=== PATIENT | male | born 1980 | race Hispanic/Latino ===

== ENCOUNTER → 2018-08-19 | Day surgery (SDC) | payer BC ==
[~2018-08-19] MED LIST: AMLODIPINE BESYL5 MG PO; FENTANYL CITRATE/PF 100MCG/2 ML INJ ONE; HYOSCYAMINE SULFATE 0.5 MG/ML INJ ONE; MIDAZOLAM HCL 2 MG/2 ML VIAL ONE; PROPOFOL IV EMULSION 10 MG/ML 50 ML VIAL ONE
[2018-08-19 16:40] VITALS: BP 131/80
--- NOTE | 2018-08-19 23:31 | Operative Report ---
DATE OF PROCEDURE: 08/19/2018 SURGEON: Steve Wiley MD PROCEDURE: Colonoscopy with polypectomy and biopsies. INDICATIONS FOR COLONOSCOPY: Lower abdominal pain. MEDICATIONS: The patient was done under MAC, please see anesthesiologist's note. PROCEDURE IN DETAIL: With the patient in left lateral decubitus position, the flexible fiberoptic Olympus colonoscope was inserted into the rectum with ease and advanced all the way to the cecum. The ileocecal valve was intubated and the scope was advanced into the terminal ileum. Biopsies were obtained. The scope was then withdrawn back into the colon. It was then withdrawn slowly. One polyp was hot biopsied from the proximal ascending colon. One polyp was snared from the transverse colon. One polyp was hot biopsied from the descending colon. Diverticular disease was noted to involve the descending and the sigmoid colon. Two polyps were hot biopsied from the sigmoid colon. One polyp was hot biopsied from the rectum. The scope was then retroflexed into the distal rectum and small internal hemorrhoids were noted, none of which was actively bleeding. The scope was then straightened out, it was subsequently withdrawn. The patient tolerated the procedure well. IMPRESSION: 1. Ascending colon polyp, hot biopsied. 2. Transverse colon polyp, snared. 3. Descending colon polyp, hot biopsied. 4. Diverticulosis. 5. Sigmoid colon polyps x2, hot biopsied. 6. Rectal polyp, hot biopsied. 7. Internal hemorrhoids, none actively bleeding. PLAN: Follow up histology. Initiate high-fiber, low-fat diet. Initiate high-fiber supplement. Start VSL #3 one p.o. daily. The patient might benefit from a followup colonoscopy in 2 to 3 years. Steve Wiley MD [facility] [place]/MODL /[id number]
== END | disposition home or self-care (01) ==
LOC: OR 11:55
PROVIDERS: ATTEND Internal Medicine Gastroenterology
DX: R10.10 Upper abdominal pain, unspecified (principal); K63.5 Polyp of colon; K62.1 Rectal polyp; K57.30 Diverticulosis of large intestine without perforation or abscess without bleeding; I10 Essential (primary) hypertension; R10.30 Lower abdominal pain, unspecified; Z68.34 Body mass index [BMI] 34.0-34.9, adult; K64.8 Other hemorrhoids; Z01.810 Encounter for preprocedural cardiovascular examination
CPT/HCPCS: 45384; 45385; 93005; J1980; J2250; J2704; 45380